=== PATIENT | male | born 1970 | race Caucasian/White ===

== ENCOUNTER 2021-06-21 22:16 | Emergency (ER) | payer OTHER ==
[~2021-06-21] VITALS: Ht 185.4 cm; Wt 111.1 kg
--- OUTSIDE RECORDS SUMMARY | 2021-06-21 22:18 | XMS ---
PreManage Notification: ANTONI ANDERSON Security Food Vendor Events No recent Security Events currently on file CRITERIA MET - PDMP CARE PROVIDERS CARMINE RUGGIERO [facility] 10/06/2019-Current PHONE: [phone] Antoni has no Care Guidelines for this patient. EBarbara VISIT COUNT (12 MO.) 1 ASHLEY Karimi TOTAL 1 NOTE: Visits indicate total known visits. ED/UCC VISIT TRACKING (12 MO.) 06/21/2021 22:16 A[facility] [place] TYPE: Emergency COMPLAINT: - THROAT PAIN INPATIENT VISIT TRACKING (12 MO.) No inpatient visits to display in this time frame [id number]
[2021-06-21] MEDS ORDERED: ALPRAZOLAM2 MG PO (23:30)
--- NOTE | 2021-06-22 22:29 | EKG ---
[facility] [address] [place], [place] [address] Signed Normal sinus rhythm Normal ECG No previous ECGs available Confirmed by ARTHUR TEAGUE MD ([id number] on 06/22/2021 10:28:55 PM Electronically Signed By: ARTHUR TEAGUE MD 06/22/212228 PATIENT NAME: ANTONI ANDERSON Electrocardiogram DATE OF : 74 PHYSICIAN: ARTHUR TEAGUE MD REPORT #: [id number] REPORT IS CONFIDENTIAL AND NOT TO BE RELEASED WITHOUT AUTHORIZATION
== END 2021-06-22 06:40 | disposition home or self-care (01) ==
LOC: ED 22:16
DX: R09.89 Other specified symptoms and signs involving the circulatory and respiratory systems (principal); R09.02 Hypoxemia; Z20.822 Contact with and (suspected) exposure to COVID-19; Z79.899 Other long term (current) drug therapy
CPT/HCPCS: 70490; 71260; 80053; 84484; 85025; 93005; 93010; 99284-25; C9803; J7030; Q9967; U0003